=== PATIENT | male | born 1965 | race Caucasian/White ===

== ENCOUNTER 2018-04-10 06:31 | Day surgery (SDC) | payer OTHER ==
[~2018-04-10] VITALS: Ht 190.5 cm; Wt 160.7 kg
[2018-04-10] MEDS ORDERED: IOHEXOL 350 MG/ML 50 ML BTL (for Cath Lab) OTHER ONE (06:32)
[2018-04-10] MEDS ORDERED: NS 1000P @30 MLS/HR (KVO) IV SCH (07:00)
[2018-04-10 07:11] VITALS: BP 167/79; PULSE 63; RESP 18; TEMP 97.7; O2SAT 94
[2018-04-10] MEDS ORDERED: NOVOINJ3 SQ (07:24)
[2018-04-10] MEDS ORDERED: OMEGCAP PO (07:24)
[2018-04-10] MEDS ORDERED: METF1000 PO (07:24)
[2018-04-10] MEDS ORDERED: CHOL1CAP34 PO (07:24)
[2018-04-10] MEDS ORDERED: INSU1INJ14 SQ (07:24)
[2018-04-10] MEDS ORDERED: ATOR80TA45 PO (07:24)
[2018-04-10] MEDS ORDERED: METO50TA PO (07:24)
[2018-04-10] MEDS ORDERED: ASPI81TA23 PO (07:24)
[2018-04-10] MEDS ORDERED: LISI-515 PO (07:24)
[2018-04-10] MEDS ORDERED: EMPA1TAB PO (07:24)
[2018-04-10] MEDS ORDERED: HEPARIN-NS/PF FLUSH BAG 2,000 ML IV FLUSH ONE (08:02)
[2018-04-10] MEDS ORDERED: VERAPAMIL HCL 5 MG/2 ML VIAL ONE (08:07)
[2018-04-10] MEDS ORDERED: MIDAZOLAM HCL 2 MG/2 ML VIAL ONE (08:14)
[2018-04-10] MEDS ORDERED: HEPARIN SODIUM - IV 10,000 UNITS/10 ML VIAL ONE (08:15)
[2018-04-10] MEDS ORDERED: SODIUM CHLOR 0.9% 1000 ML INJ 1,000 ML IV SCH (09:02)
[2018-04-10] MEDS ORDERED: SODIUM CHLORIDE 0.9% FLUSH 10 ML FLUSH IV FLUSH PRN (09:15)
[2018-04-10] MEDS ORDERED: MISC INFORMATION XX ONE (09:15)
[2018-04-10] MEDS ORDERED: SODIUM CHLORIDE 0.9% FLUSH 10 ML FLUSH IV FLUSH SCH (21:00)
== END 2018-04-10 12:30 | disposition home or self-care (01) ==
LOC: HDOC 06:31 → HDIC 06:32 → HDOC 12:30
PROVIDERS: ATTEND Internal Medicine Cardiovascular Disease
DX: I25.10 Atherosclerotic heart disease of native coronary artery without angina pectoris (principal); I10 Essential (primary) hypertension; G47.33 Obstructive sleep apnea (adult) (pediatric); E66.01 Morbid (severe) obesity due to excess calories; Z68.41 Body mass index [BMI] 40.0-44.9, adult; E11.51 Type 2 diabetes mellitus with diabetic peripheral angiopathy without gangrene; N52.9 Male erectile dysfunction, unspecified; E78.2 Mixed hyperlipidemia; D56.3 Thalassemia minor; E55.9 Vitamin D deficiency, unspecified; E11.59 Type 2 diabetes mellitus with other circulatory complications; E11.65 Type 2 diabetes mellitus with hyperglycemia
CPT/HCPCS: 93458; 99152; 99153; C1769; C1893; J1644; J2250; J3010; Q9967

== ENCOUNTER 2018-04-10 12:54 | Emergency (ER) | payer OTHER ==
[~2018-04-10] VITALS: Ht 190.5 cm; Wt 160.0 kg
[~2018-04-10 12:54] MED LIST: ASPI81TA23 PO; ATOR80TA45 PO; CHOL1CAP34 PO; EMPA1TAB PO; INSU1INJ14 SQ; LISI-515 PO; METF1000 PO; METO50TA PO; NOVOINJ3 SQ; OMEGCAP PO
[2018-04-10 13:04] VITALS: BP 151/80; PULSE 68; RESP 18; TEMP 97.6; O2SAT 94
--- NOTE | 2018-04-10 13:52 | PD ---
HPI Chief Complaint: Bleeding Time Seen by Provider: 13:33 Travel History International Travel<30 days: No Contact w/Intl Traveler<30days: No Traveled to known affect area: No History of Present Illness HPI 52-year-old male came to the emergency room with history of bleeding from his right wrist after a cardiac cath that was done earlier today. Patient was just discharged about 4 hours ago. Says he went home and his wrist was banded but then he started noticing that the gauze was getting saturated with blood. This concerned them and he came to the emergency room. The blood bank laboratory technician nurse came down to check on the patient and took the dressing down and said that the bleeding had stopped. Patient has not saturated the gauze anymore with the blood. Vital signs are stable. Patient is requesting a sling so that his arm is not dangling since that time the bleeding started initially. He otherwise feels fine and wants to go home. The cath incidentally was negative. PFSH Past Medical History Narrative Medical List of his past medical, surgical, social and family history reviewed from the nursing note Cancer: No Cardiovascular Problems: Yes (hyperlipid) High Cholesterol: Yes Chest Pain: No Diabetes: Yes (metformin, insulin) Patient Takes Glucophage: Yes Gastrointestinal Disorders: No Glaucoma: No Hepatitis: No Hiatal Hernia: No Hypertension: Yes Respiratory: Yes (sleep apnea) Integumentary: No Thyroid Disease: No Tetanus Vaccination: Unknown Influenza Vaccination: No Past Surgical History Surgical History: No Previous Surgery Social History Alcohol Use: No Tobacco Use: No Substance Use: No Allergies-Medications (Allergen,Severity, Reaction): Coded Allergies: clindamycin (Verified Allergy, Severe, 04/10/18) Comments List of his allergies reviewed from the nursing note Reported Meds & Prescriptions Reported Meds & Active Scripts Active Reported Vitamin D3 (Cholecalciferol) 50,000 Unit Cap 50,000 Units PO 2XWEEK Metformin (Metformin HCl) 1,000 Mg Tab 1,000 Mg PO BIDPC Lisinopril 20 Mg Tab 20 Mg PO DAILY Atorvastatin (Atorvastatin Calcium) 80 Mg Tab 80 Mg PO HS Novolog Flexpen Inj (Insulin Aspart) 300 Unit/3 Ml Pen 25 Units SQ TIDAC Tresiba Flextouch Pen Inj (Insulin Degludec Inj) 300 unit/3 ML Pen 115 Units SQ DAILY Jardiance (Empagliflozin) 10 Mg Tab 10 Mg PO DAILY Metoprolol Tartrate 50 Mg Tab 50 Mg PO BID Anderson-3 Fish Oil/Vitamin (Fish Oil-Cholecalciferol) 1,000-1,000 Mg Cap 1 Cap PO DAILY Aspirin EC (Aspirin) 81 Mg Tabdr 81 Mg PO DAILY Narrative Medication List of his home medications reviewed from the nursing note Review of Systems Except as stated in HPI: all other systems reviewed are Neg Physical Exam Narrative GENERAL: Awake, alert, no obvious distress, obese SKIN: Focused skin assessment warm/dry. Right wrist wound on the radial artery , bleeding controlled HEAD: Atraumatic. Normocephalic. EYES: Pupils equal and round. No scleral icterus. No injection or drainage. ENT: No nasal bleeding or discharge. Mucous membranes pink and moist. NECK: Trachea midline. No JVD. CARDIOVASCULAR: Regular rate and rhythm. No murmur appreciated. RESPIRATORY: No accessory muscle use. Clear to auscultation. Breath sounds equal bilaterally. GASTROINTESTINAL: Abdomen soft, non-tender, nondistended. Hepatic and splenic margins not palpable. MUSCULOSKELETAL: No obvious deformities. No clubbing. No cyanosis. No edema. NEUROLOGICAL: Awake and alert. No obvious cranial nerve deficits. Motor grossly within normal limits. Normal speech. PSYCHIATRIC: Appropriate mood and affect; insight and judgment normal. Data Data Last Documented VS Vital Signs Date Time Temp Pulse Resp B/P (MAP) Pulse Ox O2 Delivery O2 Flow Rate FiO2 04/10/18 13:04 97.6 68 18 151/80 (103) 94 Orders Orders Support Splint (04/10/18 14:21) Ed Discharge Order (04/10/18 14:21) [facility] Medical Decision Making Medical Screen Exam Complete: Yes Emergency Medical Condition: Yes Medical Record Reviewed: Yes Differential Diagnosis Postprocedure bleeding Narrative Course 2:34 PM patient will be discharged home with an arm sling. Procedures EKG Prior to Arrival: No Diagnosis Primary Impression: Haemorrhage postprocedure Additional Instructions: Return to the ER if condition worsens or any other new concerns. Otherwise follow-up with the scouring machine tender and your primary care. Disposition: 01 DISCHARGE HOME Condition: Stable Candelario Rosenthal MD April 10, 2018 13:52
--- NOTE | 2018-04-10 18:37 | MA ---
cc: Norm Bailey DO DATE: 04/10/2018 ATTENDING: Norm Bailey DO PROCEDURES PERFORMED: Selective right and left coronary angiography and left heart catheterization via the right radial artery approach. PREPROCEDURE DIAGNOSES: 1. Abnormal Lexiscan stress test with mid to basal inferior ischemia without infarction. 2. Preoperative risk assessment. 3. Morbid obesity. POSTPROCEDURE DIAGNOSES: 1. Obstructive coronary artery disease. 2. High grade focal stenosis of the proximal right coronary artery with chronic total occlusion of the mid-right coronary artery with [id number] collateral flow of the right-sided posterior descending artery. 3. Mild approximate 30% mid-left anterior descending stenosis. ANESTHESIA: 1. Fentanyl and Versed were used for conscious sedation. 2. Lidocaine was used for local anesthetic. MEDICATIONS: A total of 200 mcg of Nitroglycerin, 2.5 mg of verapamil and 5000 units of heparin were administered throughout the case. COMPLICATIONS: None. INFORMED CONSENT: Prior to the procedure, the patient was informed of the risks of the procedure including, but not limited to bleeding, vascular complication, stroke, myocardial infarction, need for emergent bypass surgery, infection, arrhythmia, contrast allergy and . Expressing an understanding of these risks, the patient agreed to proceed with the procedure. DESCRIPTION OF PROCEDURE: After informed consent was obtained, the patient was brought to the cardiac catheterization lab in a postabsorptive state. The patient was prepped and draped in the usual sterile fashion. Timeout was taken in order to verify the patient, procedure and preprocedure labs . The right radial artery was identified by anatomic location and palpation of the radial pulse and overlying subcutaneous layers were anesthetized with 1% lidocaine. The right radial artery was cannulated with a 2.5 cm Cook type needle using a modified Seldinger technique. A micropuncture wire was advanced into the radial artery without difficulty. A 6-Occitan glide sheath was then advanced over the wire and, with wire and dilator removed, the sidearm was flushed with sterile saline and subsequently flushed between catheter exchanges. A JR4 diagnostic catheter was advanced over a J guidewire to the ascending aorta and with guidewire removed engaged the right coronary artery. Serial orthogonal angiographic images were obtained. The catheter was then exchanged over an exchange length guidewire for a JL3.5 diagnostic catheter and with guidewire removed the catheter engaged the left coronary artery. Serial orthogonal angiographic images were obtained. The catheter was then exchanged over an exchange length guidewire for an angled pigtail catheter which was then advanced across the aortic valve into the left ventricle. Hemodynamic assessment of the left ventricle was obtained with manual pullback recorded across the aortic valve to measure gradients. The catheter was removed over a wire with completion of the case. The sheath was removed from the radial artery with placement of a Terumo TR band with hemostasis achieved prior to the patient leaving the cardiac catheterization laboratory in stable condition. ANGIOGRAPHIC FINDINGS: 1. LEFT MAIN CORONARY ARTERY: The left main coronary artery arises from the aorta in its usual position as a large caliber, short length vessel and is angiographically free of disease. 2. LAD: The LAD is a moderate caliber vessel and gives rise to two diagonal branches before continuing distally to wrap the apex. There is a focal approximate 30% eccentric stenosis in the mid-LAD with mild luminal irregularity in the more proximal segment. The distal LAD appears to provide left to right collateral flow to the right-sided PDA. 3. LEFT CIRCUMFLEX: The left circumflex is a moderate caliber vessel in a proximal segment and gives rise to 2 moderate caliber obtuse marginal branches before traversing the AV groove as a diminutive vessel. There is mild luminal irregularity in the obtuse marginal branches. 4. RCA: The RCA is a large caliber dominant vessel with a focal high grade approximate 80% napkin ring stenosis. The RCA arises from the aorta in its usual position as a large caliber dominant vessel. There is a high grade approximate 80% napkin ring focal stenosis in the proximal segment and the RCA is chronically totally occluded in the mid-segment with [id number] and [id number] collateral flow of the right-sided distal PDA. HEMODYNAMIC FINDINGS: LVEDP 12 mmHg. No significant gradient across the aortic valve upon manual pullback. IMPRESSION: Obstructive coronary artery disease involving a high grade 80% napkin ring stenosis of the proximal right coronary artery with chronic total occlusion in the mid-right coronary artery with [id number] and [id number] collateralized flow to the right-sided posterior descending artery as well as mild nonobstructive disease in the mid-left anterior descending. The patient is currently asymptomatic and at this juncture would benefit from continued aggressive medical management. PLAN: 1. Continue aggressive medical management with lifestyle and dietary modifications as well as pharmacotherapy for secondary prevention. 2. 2. We will see him for followup within the next 1-2 weeks to complete his preoperative risk assessment prior to undergoing planned bariatric surgery. DO MARJ Boyd , 05:53 PM , 06:36 PM
== END 2018-04-10 14:49 | disposition home or self-care (01) ==
LOC: NEPD 12:54
DX: R58 Hemorrhage, not elsewhere classified (principal)
CPT/HCPCS: 99282